=== PATIENT | female | born 1960 | race Caucasian/White ===

== ENCOUNTER 2022-05-20 21:39 | Emergency (ER) | payer OTHER ==
[~2022-05-20] VITALS: Ht 157.5 cm; Wt 122.7 kg
[2022-05-20] MEDS ORDERED: LISI-892 PO (21:57)
[2022-05-20] MEDS ORDERED: MECL-134 PO (21:57)
[2022-05-20] MEDS ORDERED: DULA1.5P SQ (21:57)
[2022-05-21] MEDS ORDERED: ACET-66 PO (00:10)
[2022-05-21] MEDS ORDERED: LIDO700A15 TP (00:10)
[2022-05-21 00:29] VITALS: BP 125/88
== END 2022-05-21 00:50 | disposition home or self-care (01) ==
LOC: EMS 21:41
DX: R07.89 Other chest pain (principal); E11.9 Type 2 diabetes mellitus without complications; E78.00 Pure hypercholesterolemia, unspecified; Z86.69 Personal history of other diseases of the nervous system and sense organs; Z90.49 Acquired absence of other specified parts of digestive tract; Z90.710 Acquired absence of both cervix and uterus; Z98.890 Other specified postprocedural states
CPT/HCPCS: 71101; 99283